=== PATIENT | female | born 1960 | race Caucasian/White ===

== ENCOUNTER → 2017-03-13 | Outpatient (CLI) | payer BC | LOC: FIMAGING 15:58 | PROVIDERS: ATTEND Midwife | DX: Z12.31 Encounter for screening mammogram for malignant neoplasm of breast (principal); Z85.3 Personal history of malignant neoplasm of breast; Z80.3 Family history of malignant neoplasm of breast | CPT/HCPCS: G0202 ==

== ENCOUNTER → 2018-03-14 | Outpatient (CLI) | payer BC | LOC: FIMAGING 15:21 | PROVIDERS: ATTEND Midwife | DX: Z12.31 Encounter for screening mammogram for malignant neoplasm of breast (principal); Z85.3 Personal history of malignant neoplasm of breast ==

== ENCOUNTER → 2018-04-16 | Outpatient (CLI) | payer BC | LOC: FIMAGING 16:21 | PROVIDERS: ATTEND Midwife | DX: Z80.41 Family history of malignant neoplasm of ovary (principal); D25.9 Leiomyoma of uterus, unspecified ==

== ENCOUNTER → 2018-05-02 | Outpatient (CLI) | payer BC | END | disposition home or self-care (01) | LOC: FIMAGING 10:03 | PROVIDERS: ATTEND Midwife | DX: M81.0 Age-related osteoporosis without current pathological fracture (principal); Z78.0 Asymptomatic menopausal state; Z87.828 Personal history of other (healed) physical injury and trauma ==